=== PATIENT | female | born 1945 | race Caucasian/White ===

== ENCOUNTER → 2022-05-30 | Outpatient (CLI) | payer MEDICARE, OTHER ==
[~2022-05-30] MED LIST: ASPI325EC PO; CALGLU500 PO; DOCU100 PO; ERGO400 PO; ESTMET PO; GAVILAX17 GM PO; Glucosamine Ch1 EAC4 PO; IBUP400 PO; LEVSOD100 PO; LEVSOD88 PO; LIOT5; LIOT5 PO; LOSA50; LOSA50 PO; NAPR220 PO; OMEP20ER PO; OXYACE5T PO; Omeprazole20 M1 PO; PROG100 PO; PYRI100 PO; Percocet 5-3251 EACH PO; VENL37.5 PO; VENL75 PO; [UNRECOGNIZED DRUG - OTHER] PO
[2022-05-30 18:58] LABS: BASOPHILS ABSOLUTE AUTO 0.03 K/mm3 (0.00-0.23); BASOPHILS PERCENT AUTO 1 % (0-2); EOSINOPHILS ABSOLUTE AUTO 0.21 K/mm3 (0.00-0.68); EOSINOPHILS PERCENT AUTO 4 % (0-6); Hematocrit 33.1 % (33.0-51.0); IMMATURE GRAN ABSOLUTE AUTO 0.01 K/mm3 (0.00-0.10); IMMATURE GRAN PERCENT AUTO 0 % (0-1); LYMPHOCYTES ABSOLUTE AUTO 0.91 K/mm3 (0.84-5.20); LYMPHOCYTES PERCENT AUTO 16 % (21-46); MONOCYTES ABSOLUTE AUTO 0.44 K/mm3 (0.16-1.47); MONOCYTES PERCENT AUTO 8 % (4-13); Mean Corpuscular HGB 31.7 pg (26.0-34.0); Mean Corpuscular HGB Conc 33.2 g/dL (31.5-36.5); Mean Corpuscular Volume 95 fL (80-100); Mean Platelet Volume 10.7 fL (9.1-12.4); NEUTROPHILS ABSOLUTE AUTO 3.95 K/mm3 (1.96-9.15); NEUTROPHILS PERCENT AUTO 71 % (41-73); Platelet Count 253 K/mm3 (150-400); RDW Coefficient Variation 13.2 % (11.7-14.2); RDW Standard Deviation 45.4 fL (35.1-46.3); Red Blood Cell Count 3.47 M/mm3 (3.80-5.20); White Blood Cell Count 5.55 K/mm3 (4.00-11.30)
[2022-05-31 09:54] LABS: Percent Saturation 22.2 % (15.0-50.0)
== END | disposition home or self-care (01) ==
LOC: LAB SHORT 15:10 → LAB 15:10
PROVIDERS: Internal Medicine
DX: S70.11XD Contusion of right thigh, subsequent encounter (principal); S71.111D Laceration without foreign body, right thigh, subsequent encounter; D62 Acute posthemorrhagic anemia
CPT/HCPCS: 82728; 83540; 83550; 85025

== ENCOUNTER 2022-08-13 07:45 | Day surgery (SDC) | payer MEDICARE, OTHER ==
[~2022-08-13] VITALS: Ht 165.1 cm; Wt 98.1 kg
--- NOTE | 2022-08-13 08:18 | NUR ---
08/13/22 0818 Leidy Ortiz SECOND BLOOD PRESSURE WAS 138/100, NURSE WAS NOTIFIED.
== END 2022-08-13 10:00 | disposition home or self-care (01) ==
LOC: ORSCSDS 07:45
PROVIDERS: Internal Medicine Gastroenterology
PROC: 0DBH8ZX Excision of Cecum, Via Natural or Artificial Opening Endoscopic, Diagnostic (ICD-10-PCS; principal; 2022-08-13 09:00)
PROC: 0DBM8ZX Excision of Descending Colon, Via Natural or Artificial Opening Endoscopic, Diagnostic (ICD-10-PCS; principal; 2022-08-13 09:00)
DX: Z12.11 Encounter for screening for malignant neoplasm of colon (principal); Z86.010 Personal history of colon polyps; Z80.0 Family history of malignant neoplasm of digestive organs; D12.4 Benign neoplasm of descending colon; D12.0 Benign neoplasm of cecum; K62.4 Stenosis of anus and rectum; K57.30 Diverticulosis of large intestine without perforation or abscess without bleeding; E66.9 Obesity, unspecified; Z68.37 Body mass index [BMI] 37.0-37.9, adult; Z79.899 Other long term (current) drug therapy
CPT/HCPCS: 88305; J2704; J7120

== ENCOUNTER 2023-07-15 09:23 | Day surgery (SDC) | payer MEDICARE, OTHER ==
[~2023-07-15 09:23] MED LIST changes: +Ondansetron Odt8 MG
[2023-07-15] MEDS ORDERED: ACET500 PO (09:26)
[2023-07-15] MEDS ORDERED: Vitamin D1000 UNI1 PO (09:26)
[2023-07-15] MEDS ORDERED: GLUCOSAMINE-CH1 EA50 PO (09:27)
[2023-07-15] MEDS ORDERED: METHYL B-12500 MCG (09:28)
[2023-07-15] MEDS ORDERED: VENL75ER PO (09:29)
== END 2023-07-19 23:59 | disposition home or self-care (01) ==
LOC: MOI US 09:23
PROC: 07B50ZZ Excision of Right Axillary Lymphatic, Open Approach (ICD-10-PCS; principal; 2023-07-16)
PROC: 0HBT0ZZ Excision of Right Breast, Open Approach (ICD-10-PCS; principal; 2023-07-16)
DX: C50.411 Malignant neoplasm of upper-outer quadrant of right female breast (principal); Z17.1 Estrogen receptor negative status [ER-]
CPT/HCPCS: 19285; 77065; A4648

== ENCOUNTER 2023-07-16 08:00 | Day surgery (SDC) | payer MEDICARE, OTHER ==
[~2023-07-16] VITALS: Ht 165.1 cm; Wt 88.2 kg
[2023-07-16] VITALS (13 sets, daily range): BP systolic 126–170; BP diastolic 76–129
[~2023-07-16 08:00] MED LIST changes: +ACET500 PO; +GLUCOSAMINE-CH1 EA50 PO; +METHYL B-12500 MCG; +VENL75ER PO; +Vitamin D1000 UNI1 PO
--- NOTE | 2023-07-16 09:08 | NUR ---
History, Chart, Medications and Allergies reviewed before start of procedure. Ambulatory in Day Surgery. Pre-Op teaching done. Pt verbalizes understanding. Patient confirms NPO status and agrees with scheduled surgery. Patient reports completing Chlorhexadine shower X2 prior to admission to hospital. Surgical site prepped with 2% Chlorhexidine cloth wipe. Lungs clear T/O to Auscultation. Patient States Post-Procedure ride home has been arranged.
--- NOTE | 2023-07-16 12:28 | NUR ---
Discharge instructions reviewed with patient. Patient verbalizes understanding. Copy given to patient to take home. PT RAMBO AT BEDSIDE. STERI STRIPS TO RIGHT BREAST C/D/I, WITH GAUZE THAT IS DRY. BREAST BINDER ON. PT DRESSED WITH HUSBANDS ASSISTANCE. PT TOLERATED JUICE AND CRACKERS WELL AND TOOK ONE NORCO PER ORDER. Discharged via wheelchair to private car for ride home.
== END 2023-07-16 12:33 | disposition home or self-care (01) ==
LOC: NM 08:00 → ORSCMMR 08:00 → NM 12:33 → ORSCMMR 12:33
PROVIDERS: Surgery
PROC: 07B50ZX Excision of Right Axillary Lymphatic, Open Approach, Diagnostic (ICD-10-PCS; principal; 2023-07-16 09:00)
PROC: 0HBT0ZZ Excision of Right Breast, Open Approach (ICD-10-PCS; principal; 2023-07-16 09:00)
DX: C50.411 Malignant neoplasm of upper-outer quadrant of right female breast (principal); D36.0 Benign neoplasm of lymph nodes; Z17.1 Estrogen receptor negative status [ER-]; I10 Essential (primary) hypertension; Z79.899 Other long term (current) drug therapy; E03.9 Hypothyroidism, unspecified
CPT/HCPCS: 38792; 76098; 88307; 88342; A9270; A9520; J0690; J2250; J2371; J2405; J2704; J3010; J7120; Q9968